=== PATIENT | male | born 2000 | race Caucasian/White ===

== ENCOUNTER 2025-05-04 14:38 | Emergency (ER) | payer SELFPAY ==
[2025-05-04 14:39] VITALS: BP 160/102
--- NOTE | 2025-05-04 16:16 | ED.GENMED ---
History of Present Illness
General
Chief Complaint: Crisis Evaluation
Source: patient
Exam Limitations: none
Time Seen by Provider: 05/04/25 16:06
History of Present Illness
History of Present Illness:
24yoM with a history of anxiety presenting for crisis evaluation. Patient has a longstanding history of anxiety which he states has been getting worse recently to the point where it is debilitating. He states he just needs someone to talk to and
decided to come to the ED. He does not currently follow-up with therapist because he states he is unable to afford this. He was on medications about 8 years ago but does not recall the names. He denies any suicidal thoughts, plans, or attempts.
Phy Exam
General Physical Exam
General Presentation: well appearing and no apparent distress
General Skin: warm and dry
General Habitus: normal
General Mental: alert
ENT Exam
ENT Exam: normocephalic
Neurological Exam
Neurological Exam: alert
[place] Coma Scale
Eye Opening: Spontaneous
Verbal Response: Oriented
Motor Response: Obeys Commands
GCS Total Score: 15
Skin Exam
Skin Exam: normal color and warm/dry
Psychiatric Exam
Psychiatric Exam: anxious and other (Patient anxious. Cooperative during assessment. No SI. No signs of psychosis. )
Course
Orders/Labs/Results
Orders:
Orders
05/04/25 14:43
Crisis Consult Urgent
Reason for Consult: depression, anxiety
Vital Signs
Initial and Last Documented VS:
Initial Vital Signs
Temp Pulse Resp BP Pulse Ox
98 F 74 16 160/102 98
05/04/25 14:39 05/04/25 14:39 05/04/25 14:39 05/04/25 14:39 05/04/25 14:39
Last Documented Vital Signs
Temp Pulse Resp BP Pulse Ox
98 F 74 16 160/102 98
05/04/25 14:39 05/04/25 14:39 05/04/25 14:39 05/04/25 14:39 05/04/25 16:17
MDM/Problems Addressed
Differential Diagnosis Includes:
24yoM here for crisis eval. Chronic anxiety that is now debilitating. No SI. Just wants someone to talk to. No signs of psychosis on exam. Patient evaluated by crisis team and outpatient resources provided. No grounds for 302/inpatient admission. He
was advised to return to the ED with any worsening symptoms including suicidal thoughts.
*Pulse Oximetry
SaO2: 98
Oxygen Mode of Delivery: Room air
Patient hypoxic: no
*Critical Care Note
Total Time (30-74mins, 75-104mins- exclusive of procedures): Not Applicable
ED Attending Note
-
Portions of this chart may have been created with voice recognition software.� Occasional wrong word or��sound alike� substitutions may have occurred due to the inherent limitations of voice recognition software.
Discharge Plan
Departure
Patient Disposition: Home (Routine Discharge)
Date of Disposition: 05/04/25
Time of Disposition: 16:37
Patient with high blood pressure during this ER visit?: Yes
Discharge Problem:
Encounter for psychiatric assessment
Instructions: Anxiety, Adult (DC)
Prescriptions:
No Action
multivitamin [[id number]] 1 EACH tablet
1 ea PO DAILY
Patient Comments:
(MVI for teens)
methylphenidate HCl [Concerta] 36 MG tablet extended release 24hr
54 mg PO DAILY
ibuprofen 400 MG tablet
400 mg PO Q6HPRN PRN (Reason: pain, take with food) Qty: 30 0RF
Referrals:
[facility] [Outside]
NONE,* [Family Provider, Internal Medicine]
Activity Restrictions/Additional Instructions:
Please follow-up with the outpatient mental health resources provided. Return to the ER with any worsening symptoms including suicidal thoughts.
Interventions
Interventions:
*Risk Screen - Suicide Last Done: 05/04/25 14:39
*Neglect/Abuse Screening Last Done: 05/04/25 14:39
*Nursing Disposition Last Done: 05/04/25 16:51
ED-Psychological Assessment Last Done: 05/04/25 16:50
Discharge Date and Time
Discharge Date/Time: 05/04/25 16:52
Print Language: [id number]
== END 2025-05-04 16:52 | disposition home or self-care (01) ==
LOC: EMR 14:38
PROVIDERS: EMERGENCY PHYSICIAN Emergency Medicine
DX: Z00.8 Encounter for other general examination (principal); F41.8 Other specified anxiety disorders
CPT/HCPCS: 99282